=== PATIENT | male | born 1970 | race Caucasian/White ===

== ENCOUNTER 2016-12-14 11:01 | Observation (INO) | payer OTHER ==
--- NOTE | 2016-12-14 19:21 | HP ---
ADMIT: 12/14/2016 RM/LOC: [facility] MR#: [id number] [address] [id number] [place] [address] [place] [address] Pre-OP History and Physical SEX: M AGE: 45 : 1970 DATE OF SERVICE: REASON FOR ADMISSION: Acute appendicitis. HISTORY OF PRESENT ILLNESS: This patient is a 45-year-old male, who started having some abdominal pain, was not nearly as bad on Thursday, but here over the last 24 hours, just continued to crescendo enough to where he came into the emergency room, found to have a white count of 19,000. CT scan showing acute appendicitis. Plan at this time is to take him to the operating room for a laparoscopic possible open appendectomy, which I have discussed with him, what it entails, the risks, benefits, possible complications, and alternatives. He understands and wished to proceed. PAST MEDICAL HISTORY: Denies any past medical history of significance. He has had previous inguinal hernias as a youngster. SOCIAL HISTORY: He does smoke a pack a day. Denies significant alcohol or drugs. FAMILY HISTORY: Otherwise, noncontributory. ALLERGIES: HE HAS NO KNOWN DRUG ALLERGIES. MEDICATIONS: Denies any current medications. REVIEW OF SYSTEMS: Positive for the above. Everything else is otherwise negative. PHYSICAL EXAMINATION: GENERAL: He is alert. He is oriented. He is in no significant distress. HEENT: His sclerae are nonicteric. Extraocular muscles are intact. CHEST: Clear anteriorly. HEART: Regular rate and rhythm. ABDOMEN: Soft. He has peritoneal signs in the right lower quadrant, but no other diffuse peritoneal signs. ASSESSMENT AND PLAN: Laparoscopic possible open appendectomy. Shahab Carreon MD/ elizabeth JOB #: [id number] CC: Shahab Carreon, Attending Physician Shahab Carreon, Family Physician
--- NOTE | 2016-12-15 16:11 | ER ---
ADMIT: 12/14/2016 RM/LOC: [address] [place] [address] MR#: [id number] [address] [place] [id number] [place] [address] [place] [address] Emergency Room Report SEX: M AGE: 45 : 1970 DATE: 12/14/2016 PRIMARY PROVIDER: [facility]. HISTORY OF PRESENT ILLNESS: The patient is a 45-year-old male, who started having abdominal pain since Thursday. He continues to have it and things have gotten worse now. He denies any nausea or vomiting, but the pain is excruciating. Denies any diarrhea as well. He has some right flank pain. REVIEW OF SYSTEMS: Negative. PAST MEDICAL HISTORY: Abdominal pain in the past, but nothing acute like this, and he was scanned, no diverticulosis or diverticulitis. PAST SURGICAL HISTORY: He has had a hernia repair. MEDICATIONS: Takes no medication. ALLERGIES: HE HAS NO ALLERGIES. SOCIAL HISTORY: He is a smoker and drink alcohol. PHYSICAL EXAMINATION: VITAL SIGNS: Blood pressure 127/78 with a heart rate of 89, respirations 16, temp 97.9, and O2 saturation 99%. GENERAL: Moderately anxious and tearful. at bedside and very anxious as well. HEENT: Normal inspection. NECK: Supple. RESPIRATIONS: No distress. CVS: Regular in rate and rhythm. Equal pulses bilaterally. Heart sounds are normal. ABDOMEN: Right upper and right lower quadrant abdominal pain, tenderness, guarding with rebound and positive Rovsing sign. SKIN: Good color and turgor, intact. EXTREMITIES: Well perfused. No edema. ADMIT: 12/14/2016 RM/LOC: 6 [facility] MR#: [id number] [address] [place] [id number] [place] [address] [place] [address] Emergency Room Report SEX: M AGE: 45 : 1970 NEUROLOGIC: Oriented x4. Mood and affect anxious. LABORATORY DATA: CBC: White count 19,000, platelets 129. Glucose 102. The patient has had nothing per mouth since yesterday afternoon. His GFR is 89. His urine has protein trace and rbc's 4. CT positive for acute appendicitis per radiologist's reading. CLINICAL IMPRESSION: 1. Acute appendicitis. 2. Abdominal pain, right upper quadrant and right lower quadrant with rebound and tenderness. Dr. Carreon contacted here to visit the patient. DM Jules / Anrdew Emery MD / modl JOB #: [id number] CC: Shahab Carreon MD, Attending Physician Shahab Carreon MD, Family Physician
[2016-12-17] MEDS ORDERED: AUGMENTIN 250250 MG PO (06:08)
[2016-12-17] MEDS ORDERED: PERCOCET 5-3251 EACH PO (06:09)
--- NOTE | 2017-01-09 11:47 | OR ---
ADMIT: 12/14/2016 RM/LOC: 626 [facility] MR#: [id number] [facility]#: [id number] [address] [address] [place] [address] [place] [address] Operative/Delivery Room Report SEX: M AGE: 45 : 1970 SURGERY DATE: 12/14/2016 SURGEON: Shahab Carreon MD PREOPERATIVE DIAGNOSIS: Acute appendicitis. POSTOPERATIVE DIAGNOSIS: Acute appendicitis with evidence of perforation. PROCEDURE: Laparoscopic appendectomy. ANESTHESIA: General endotracheal tube anesthesia. ESTIMATED BLOOD LOSS: 20 mL or less. INDICATION FOR PROCEDURE: Please see H and P. DESCRIPTION OF PROCEDURE: After the risks, benefits, possible complications, and the alternatives had been explained, and informed consent had been obtained, the patient was taken back to the operating room and underwent general endotracheal tube anesthesia, and the surgical field was prepped and draped in a sterile manner. An infraumbilical incision was made. The Veress needle was inserted. The abdomen was insufflated with CO2. Once there was adequate insufflation, a 5 mm port was placed. The camera was placed through this port site. Under direct visualization, we then placed a 5 mm suprapubic and a 12 mm left-sided port. The appendix was grasped. The base of it appeared to have perforation. There was fecal material coming out. I slowly washed, clean this up, and kind of freed it up, took the mesoappendix with a couple of firings of the Endo-AMELIA stapler. Then, felt I got back to adequate enough tissue on the cecum to where I could come across that with a 2.5 load of the Endo-AMELIA stapler. Appendix was placed in EndoCatch bag and removed through the left lower quadrant port site. I irrigated and removed much irrigation as possible. Cleaned things up in the pelvis, did not feel there was any problems with our staple lines or leaking or anything. Once I had everything adequately cleaned up, then I injected some 0.5% Marcaine for pain control in the incision sites. Closed the fascia of the left lower quadrant port site with an 0-Polysorb suture using the suture passer, and the skin was all closed with 4-0 Monocryl sutures. He tolerated it well. He was extubated and taken to recovery room in stable and satisfactory condition. Shahab Carreon MD/ elizabeth JOB #: [id number] CC: Shahab Carreon, Attending Physician Shahab Carreon, Family Physician
== END 2016-12-15 19:47 | disposition home or self-care (01) ==
LOC: ER 11:01 → 6PED 12:40 → SSS 12:40 → 6PED 15:15
PROVIDERS: ADMIT Surgery
PROC: 0DTJ4ZZ Resection of Appendix, Percutaneous Endoscopic Approach (ICD-10-PCS; principal; 2016-12-14)
DX: K35.80 Unspecified acute appendicitis (principal); F17.210 Nicotine dependence, cigarettes, uncomplicated; Z98.890 Other specified postprocedural states